=== PATIENT | female | born 1985 ===

== ENCOUNTER 2020-01-18 13:16 | Emergency (ER) | payer SELFPAY ==
[2020-01-18 14:34] LABS: Bacteria,Urine 2+ /HPF (Negative); Mucus,Urine FEW /HPF
[2020-01-18 14:35] LABS: RBC,Urine > 182.0 /HPF (0.0-6.0)
[2020-01-18 14:36] LABS: Bilirubin,Urine TNR (Negative); Blood,Urine TNR (Negative); Color,Urine TNR (Yellow); Ictotest,Urine TNR (Negative); PH,Urine TNR (5.0-7.0); Protein,Urine TNR mg/dL (Negative); Urobilinogen,Urine TNR mg/dL (<2.0)
[2020-01-18 14:37] LABS: HCG Qualitative,Urine Negative (Negative)
--- NOTE | 2020-01-18 14:48 | Emergency Department Report ---
ED General Adult HPI - General Chief complaint: Upper Respiratory Infection Stated complaint: ABD PAIN/SORE THROAT Source: patient Mode of arrival: Ambulatory Limitations: No Limitations - History of Present Illness Initial comments: This is a 34-year-old female who presents the emergency department chief complaint of sore throat, fever, chills, body aches superior abdominal pain over the past 2 weeks. She denies any known past medical history other than anemia, is not any medications currently is on the allergies medications. Previous surgeries include x4. She does report she came in contact with COVID positive person 3 weeks ago. She denies any associated nausea, vomiting, diarrhea, headache, dizziness, blurry vision, neck pain or stiffness, weakness or any other associated symptoms. - Related Data Previous Rx's Medication Instructions Recorded Last Taken Type Ferrous Sulfate [Ferrous Sulfate 324 mg PO TID #90 tablet. 01/18/20 Unknown Rx 324 MG] Ibuprofen [Motrin 600 MG tab] 600 mg PO Q8H PRN #30 tablet 01/18/20 Unknown Rx cephALEXin [Keflex] 500 mg PO Q6HR #40 capsule 01/18/20 Unknown Rx Allergies Allergy/AdvReac Type Severity Reaction Status Date / Time No Known Allergies Allergy Verified 01/18/20 13:44 ED Review of Systems ROS: Stated complaint: ABD PAIN/SORE THROAT Other details as noted in HPI Comment: All other systems reviewed and negative Constitutional: fever. denies: chills Eyes: denies: eye pain, eye discharge, vision change ENT: as per HPI, throat pain, congestion. denies: ear pain Respiratory: denies: cough, shortness of breath, wheezing Cardiovascular: denies: chest pain, palpitations Endocrine: no symptoms reported Gastrointestinal: denies: abdominal pain, nausea, diarrhea Genitourinary: denies: urgency, dysuria, discharge Musculoskeletal: denies: back pain, joint swelling, arthralgia Skin: denies: rash, lesions Neurological: denies: headache, weakness, paresthesias Psychiatric: denies: anxiety, depression Hematological/Lymphatic: denies: easy bleeding, easy bruising ED Past Medical Hx - Past Medical History Previous Medical History?: Yes Additional medical history: anemia - Surgical History Past Surgical History?: No - Social History Smoking Status: Never Smoker Substance Use Type: None - Medications Home Medications: Home Medications Medication Instructions Recorded Confirmed Last Taken Type Ferrous Sulfate [Ferrous Sulfate 324 mg PO TID #90 tablet. 01/18/20 Unknown Rx 324 MG] Ibuprofen [Motrin 600 MG tab] 600 mg PO Q8H PRN #30 tablet 01/18/20 Unknown Rx cephALEXin [Keflex] 500 mg PO Q6HR #40 capsule 01/18/20 Unknown Rx ED Physical Exam - General Limitations: No Limitations General appearance: alert, in no apparent distress - Head Head exam: Present: atraumatic, normocephalic - Eye Eye exam: Present: normal appearance, PERRL, EOMI Pupils: Present: normal accommodation - ENT ENT exam: Present: normal exam, normal orophraynx, mucous membranes moist - Neck Neck exam: Present: normal inspection, full ROM. Absent: tenderness, meningismus - Respiratory Respiratory exam: Present: normal lung sounds bilaterally. Absent: respiratory distress, wheezes, rales, rhonchi, stridor - Cardiovascular Cardiovascular Exam: Present: regular rate, normal rhythm, normal heart sounds. Absent: systolic murmur, diastolic murmur, rubs, gallop - GI/Abdominal GI/Abdominal exam: Present: soft, tenderness (Mild suprapubic tenderness, negative McBurney's point tenderness, negative rebound or guarding. No CVA tenderness bilaterally), normal bowel sounds. Absent: distended, guarding, rebound, rigid - Extremities Exam Extremities exam: Present: normal inspection, full ROM, normal capillary refill. Absent: tenderness, calf tenderness - Back Exam Back exam: Present: normal inspection, full ROM. Absent: tenderness, CVA tenderness (R), CVA tenderness (L) - Neurological Exam Neurological exam: Present: alert, oriented X3, normal gait - Psychiatric Psychiatric exam: Present: normal affect, normal mood - Skin Skin exam: Present: warm, dry, intact, normal color. Absent: rash ED Medical Decision Making - Lab Data Result diagrams: 01/18/20 14:10 01/18/20 14:10 Lab Results 01/18/20 01/18/20 01/18/20 Range/Units 14:01 14:10 14:10 WBC 6.1 (4.5-11.0) K/mm3 RBC 4.54 (3.65-5.03) M/mm3 Hgb 7.1 L (10.1-14.3) gm/dl Hct 24.9 L (30.3-42.9) % MCV 55 L (79-97) fl MCH 16 L (28-32) pg MCHC 28 L (30-34) % RDW 20.1 H (13.2-15.2) % Plt Count 291 (140-440) K/mm3 Lymph % (Auto) 23.0 (13.4-35.0) % [place] % (Auto) 7.2 (0.0-7.3) % Eos % (Auto) 1.3 (0.0-4.3) % Baso % (Auto) 1.7 (0.0-1.8) % Lymph # (Auto) 1.4 (1.2-5.4) K/mm3 [place] # (Auto) 0.4 (0.0-0.8) K/mm3 Eos # (Auto) 0.1 (0.0-0.4) K/mm3 Baso # (Auto) 0.1 (0.0-0.1) K/mm3 Seg Neutrophils % 66.8 (40.0-70.0) % Seg Neutrophils # 4.0 (1.8-7.7) K/mm3 Sodium 141 (137-145) mmol/L Potassium 3.9 (3.6-5.0) mmol/L Chloride 102.0 (98-107) mmol/L Carbon Dioxide 27 (22-30) mmol/L Anion Gap 16 mmol/L BUN 8 (7-17) mg/dL Creatinine 0.5 L (0.6-1.2) mg/dL Estimated GFR > 60 ml/min BUN/Creatinine Ratio 16 % Glucose 132 H (65-100) mg/dL Calcium 9.0 (8.4-10.2) mg/dL Total Bilirubin 0.30 (0.1-1.2) mg/dL AST 19 (5-40) units/L ALT 12 (7-56) units/L Alkaline Phosphatase 93 (35-129) units/L Total Protein 7.5 (6.3-8.2) g/dL Albumin 3.9 (3.9-5) g/dL Albumin/Globulin Ratio 1.1 % Urine Color TNR Urine Turbidity TNR Urine pH TNR Ur Specific [place] 1.059 H (1.003-1.030) Urine Protein TNR Urine Glucose (UA) TNR Urine Ketones TNR Urine Blood TNR Urine Nitrite TNR Ur Reducing Substances TNR Urine Bilirubin TNR Urine Ictotest TNR Urine Urobilinogen TNR Ur Leukocyte Esterase TNR Urine WBC (Auto) 81.0 H (0.0-6.0) /HPF Urine RBC (Auto) > 182.0 (0.0-6.0) /HPF Urine Bacteria (Auto) 2+ (Negative) /HPF Urine Mucus Few /HPF Urine HCG, Qual Negative (Negative) - Radiology Data Radiology results: report reviewed, image reviewed XRay Report Signed Patient: PÉREZ CAMPOS MR#: Larissa [id number] : 1985 Acct:[id number] Age/Sex: 34 / F ADM Date: 01/18/20 Loc: ED Attending Dr: Ordering Physician: ALANNA LANDRY Date of Service: 01/18/20 Procedure(s): XR chest routine 2V Accession Number(s): [id number] cc: ALANNA LANDRY Fluoro Time In Minutes: CHEST 2 VIEWS INDICATION / CLINICAL INFORMATION: cough, fever. COMPARISON: None available. FINDINGS: SUPPORT DEVICES: None. HEART / MEDIASTINUM: No significant abnormality. LUNGS / PLEURA: No significant pulmonary or pleural abnormality. No pneumothorax. ADDITIONAL FINDINGS: No significant additional findings. IMPRESSION: 1. No significant abnormality. Signer Name: Lorrie Funes MD Signed: 01/18/2020 2:59 PM Workstation Name: [id number] Transcribed By: JR Dictated By: Lorrie Funes MD Electronically Authenticated By: Lorrie Funes MD Signed Date/Time: 01/18/20 3136 - Medical Decision Making Patient is well-appearing nontoxic and in no acute distress. Her vitals upon arrival were relatively normal other than her heart rate was slightly elevated at 113. Although with her history of fever did expect this. She had a negative chest x-ray with normal lung sounds making pneumonia unlikely. Her urine was consistent with urinary tract infection which I will treat with antibiotics. Her labs relatively normal other than a chronic appearing iron deficiency anemia which she will need to be back on iron supplementation for. Recommended follow-up with primary care doctor and return to emerge department changing worsening symptoms. She verbalized understanding the diagnosis, treatment plan and follow-up instructions and all questions were answered. Did educate her that she was not tested for COVID-19 today and that I did recommend that she socially isolate for the recommended 10 to 14 days per the CDC or be tested at an outpatient urgent care or outpatient facility that does testing to determine if she needs to isolated. Educated her that at any point if her symptoms change or worsen she can return the emergency department for evaluation. She was agreeable to this plan and all of her questions were answered. Critical care attestation.: If time is entered above; I have spent that time in minutes in the direct care of this critically ill patient, excluding procedure time. ED Disposition Clinical Impression: Acute viral syndrome Iron deficiency anemia Qualifiers: Iron deficiency anemia type: chronic blood loss Qualified Code(s): D50.0 - Iron deficiency anemia secondary to blood loss (chronic) Acute cystitis Qualifiers: Hematuria presence: with hematuria Qualified Code(s): N30.01 - Acute cystitis with hematuria Disposition: TO HOME OR SELFCARE Is pt being admited?: No Condition: Stable Instructions: Viral Syndrome (ED) Prescriptions: Ferrous Sulfate [Ferrous Sulfate 324 MG] 324 mg PO TID #90 tablet. cephALEXin [Keflex] 500 mg PO Q6HR #40 capsule Ibuprofen [Motrin 600 MG tab] 600 mg PO Q8H PRN #30 tablet PRN Reason: Pain Referrals: ROBERT SURESH MD [Staff Physician] - 3-5 Days [facility] [Provider Group] - 3-5 Days Forms: Work/School Release Form(ED) Time of Disposition: 15:30
[2020-01-18 14:50] LABS: Basophils # (Auto) 0.1 K/mm3 (0.0-0.1); Basophils % (Auto) 1.7 % (0.0-1.8); Eosinophils # (Auto) 0.1 K/mm3 (0.0-0.4); Eosinophils % (Auto) 1.3 % (0.0-4.3); Lymphocytes # (Auto) 1.4 K/mm3 (1.2-5.4); Mean Corpuscular HGB Conc 28 % (30-34); Monocytes # (Auto) 0.4 K/mm3 (0.0-0.8); Monocytes % (Auto) 7.2 % (0.0-7.3); Platelet Count 291 K/mm3 (140-440); Red Blood Count 4.54 M/mm3 (3.65-5.03)
[2020-01-18 14:59] LABS: Alanine Aminotransferase 12 units/L (7-56); Albumin 3.9 g/dL (3.9-5); Blood Urea Nitrogen 8 mg/dL (7-17); Hemolysis Index 0
--- NOTE | 2020-01-18 15:04 | XRay Report ---
CHEST 2 VIEWS INDICATION / CLINICAL INFORMATION: cough, fever. COMPARISON: None available. FINDINGS: SUPPORT DEVICES: None. HEART / MEDIASTINUM: No significant abnormality. LUNGS / PLEURA: No significant pulmonary or pleural abnormality. No pneumothorax. ADDITIONAL FINDINGS: No significant additional findings. IMPRESSION: 1. No significant abnormality. Signer Name: Lorrie Funes MD Signed: 01/18/2020 2:59 PM Workstation Name: [id number]
[2020-01-18 15:08] LABS: Hematocrit 24.9 % (30.3-42.9); Hemoglobin 7.1 gm/dl (10.1-14.3); Mean Corpuscular Volume 55 fl (79-97); Red Cell Distribution Width 20.1 % (13.2-15.2)
[2020-01-18 15:13] LABS: BUN/Creatinine Ratio 16
[2020-01-18 15:38] VITALS: BP 159/77
== END 2020-01-18 15:40 | disposition home or self-care (01) ==
LOC: ED 13:16
DX: B34.9 Viral infection, unspecified (principal); D50.8 Other iron deficiency anemias; N30.00 Acute cystitis without hematuria; Z79.899 Other long term (current) drug therapy
CPT/HCPCS: 36415; 71046; 80053; 81001; 81025; 85025; 87086; 99283